=== PATIENT | female | born 1950 | race Two or more races ===

== ENCOUNTER 2016-09-14 14:24 | Observation (INO) | payer MEDICARE, OTHER ==
[~2016-09-14 14:24] MED LIST: B PLEX; BACITRACIN28.4 G1; BIAXIN500 M1 PO; CLARITIN10 M5 PO; CLINORIL200 MG PO; DARVOCET-N 1001 TAB PO; DIFLUCAN100 MG PO; DULCOLAX10 MG/SUPP RC; DULCOLAX5 MG PO; ESTROPIPATE; ESTROPIPATE0.75 MG PO; FLUCONAZOLE100 M1 PO; FOLIC ACID1 MG PO; H PO; LATANOPROST2.5 ML BOTH EYES; LEVOTHYROXINE75 MCG PO; LOPRESSOR50 MG PO; MACROBID 100 M100 MG PO; METHADONE5 MG PO; METHOTREXATE2.5 MG PO; METOPROLOL SUC100 MG PO; MILK OF MAGNESIA PO; OMEPRAZOLE20 M2 PO; PREDNISONE5 MG PO; PREMARIN0.625 MG; REMICADE100 MG/VIA IV; RITUXAN; SENOKOT-S (SENN1 TA1 PO; TUMS500 MG PO; TYLENOL325 M1 PO; ULTRAM50 MG PO; VITAMIN D-50000 IU/C PO; VOLTAREN GEL 1100 G1 TOP
[2016-09-14] MEDS ORDERED: ZOFRAN4 M2 PO (15:39)
[2016-09-14] MEDS ORDERED: LOPERAMIDE2 M2 PO (15:39)
[2016-09-14] MEDS ORDERED: CIPRO500 M2 PO (15:40)
[2016-09-14] MEDS ORDERED: PREDNISONE5 M1 PO (15:40)
[2016-09-14] MEDS ORDERED: ASPIRIN EC81 MG PO (15:40)
[2016-09-14] MEDS ORDERED: CELEXA10 M1 PO (15:40)
[2016-09-14] MEDS ORDERED: METHOTREXATE2.5 M1 PO (15:41)
[2016-09-14] MEDS ORDERED: SYNTHROID88 MC1 PO (15:42)
[2016-09-14] MEDS ORDERED: FOLIC ACID1 M1 PO (15:42)
[2016-09-14] MEDS ORDERED: TYLENOL325 M2 PO (15:43)
[2016-09-14] MEDS ORDERED: COZAAR50 M1 PO (15:43)
[2016-09-14] MEDS ORDERED: VITAMIN D31000 UNI3 PO (15:43)
[2016-09-14] MEDS ORDERED: CLARITIN10 M6 PO (15:44)
[2016-09-14] MEDS ORDERED: SENOKOT-S TABL1 EACH PO (15:44)
[2016-09-14] MEDS ORDERED: NEURONTIN100 M1 PO (15:45)
[2016-09-14 18:03] LABS: BASO % 0.3 % (0-2); EOS % 1.3 % (0-7); EOSINOPHIL ABSOLUTE COUNT 0.2 tho/cmm (0.0-0.7); HCT-HEMATOCRIT 38.6 % (34.0-49.0); HGB-HEMOGLOBIN 12.4 gm/dl (12.0-15.5); IMMATURE GRANULOCYTES ABSOLUTE 0.11 tho/cmm (0-0.03); LYMPH % 16.4 % (20-45); LYMPH ABSOLUTE COUNT 1.9 tho/cmm (0.8-4.5); MCH (MEAN CORPUSCULAR HGB) 28.8 pg (28.0-32.0); MCHC MEAN CORPUSCULAR HGB CONC 32.1 % (32.0-36.0); MCV (MEAN CELL VOLUME) 89.6 fl (82.0-96.0); MEAN PLATELET VOLUME 9.8 cmc (9.4-12.4); MONO % 8.4 % (0-12); NEUTROPHIL ABSOLUTE COUNT 8.2 tho/cmm (1.6-8.0); NEUTROPHIL-AUTOMATED 8.2 tho/cmm (1.6-8.0); NEUTROPHILS % 72.6 % (40-80); PLATELET COUNT 265 tho/cmm (150-450); RED BLOOD COUNT 4.31 mil/cmm (4.00-5.20); RED CELL DISTRIBUTION WIDTH 15.6 % (12.4-16.4); WHITE BLOOD COUNT 11.3 tho/cmm (4.0-10.0)
[2016-09-14] MEDS ORDERED: FLAGYL500 M1 PO (18:06)
[2016-09-14 18:13] LABS: ANION GAP 17 mmol/L (0-20); BLOOD UREA NITROGEN 9 mg/dl (6-24); CARBON DIOXIDE-VENOUS 24 mmol/L (22-32); CHLORIDE 108 mmol/l (96-110); CREATININE 0.86 mg/dl (0.50-1.10); GLUCOSE 89 mg/dL (70-110); POTASSIUM 3.5 mmol/L (3.7-5.1); SODIUM 145 mmol/L (135-145); eGFR VALUE FOR BLACK 81 mL/Min
[2016-09-14 22:01] LABS: URINE BILIRUBIN SMALL (NEG); URINE BLOOD MODERATE (NEG); URINE GLUCOSE (UA) NEGATIVE (NEG); URINE KETONE LARGE (NEG); URINE LEUKOCYTE ESTERASE POSITIVE (NEG); URINE NITRITE POSITIVE (NEG); URINE PROTEIN MODERATE (NEG)
[2016-09-14 22:09] LABS: URINE APPEARANCE CLOUDY; URINE COLOR BROWN
[2016-09-14 22:10] LABS: URINE WBC 80-100 /[HPF] (0-5)
[2016-09-14 22:11] LABS: URINE BACTERIA 3+; URINE EPITHELIAL CELLS RARE /[HPF] (0-10)
[2016-09-15 05:00] LABS: ANION GAP 13 mmol/L (0-20); BLOOD UREA NITROGEN 5 mg/dl (6-24); CALCIUM 7.2 mg/dl (8.5-10.5); CARBON DIOXIDE-VENOUS 24 mmol/L (22-32); CHLORIDE 108 mmol/l (96-110); CREATININE 0.75 mg/dl (0.50-1.10); GLUCOSE 93 mg/dL (70-110); POTASSIUM 3.2 mmol/L (3.7-5.1); SODIUM 142 mmol/L (135-145); eGFR VALUE FOR BLACK >90 mL/Min
[2016-09-15 05:09] LABS: BASO % 0.2 % (0-2); EOS % 1.6 % (0-7); EOSINOPHIL ABSOLUTE COUNT 0.2 tho/cmm (0.0-0.7); HCT-HEMATOCRIT 34.5 % (34.0-49.0); HGB-HEMOGLOBIN 11.2 gm/dl (12.0-15.5); LYMPH % 21.4 % (20-45); LYMPH ABSOLUTE COUNT 2.2 tho/cmm (0.8-4.5); MCHC MEAN CORPUSCULAR HGB CONC 32.5 % (32.0-36.0); MCV (MEAN CELL VOLUME) 89.4 fl (82.0-96.0); MEAN PLATELET VOLUME 9.8 cmc (9.4-12.4); MONO % 10.5 % (0-12); MONOCYTE ABSOLUTE COUNT 1.1 tho/cmm (0.0-1.2); NEUTROPHIL ABSOLUTE COUNT 6.7 tho/cmm (1.6-8.0); NEUTROPHIL-AUTOMATED 6.7 tho/cmm (1.6-8.0); NEUTROPHILS % 65.3 % (40-80); PLATELET COUNT 258 tho/cmm (150-450); RED BLOOD COUNT 3.86 mil/cmm (4.00-5.20); RED CELL DISTRIBUTION WIDTH 15.7 % (12.4-16.4); WHITE BLOOD COUNT 10.3 tho/cmm (4.0-10.0)
--- NOTE | 2016-09-15 15:32 | NUR ---
VIRTUAL CARE NOTE: PT RESTING ON BED, STATES DOING OK, STILL HAVING DIARRHEA, INFOMRED PT STOOL STEST FOR C-DIFF AND STOOL PANNEL ARE NEGATIVE. PLAN OF CARE REVIEWED WITH PT, PT DENIES NEEDS OR QUESTIONS AT THIS TIME.
--- NOTE | 2016-09-15 20:10 | NUR ---
VIRTUAL CARE NOTE: PT. IN BED, STATES IS HAVING LOOSE STOOLS AT TIMES AND ALSO MENTIONS THAT SHE HAD WALKED ONE TIME TODAY. ENCOURAGED MORE AMBULATION. INSTRUCTED TO CALL FOR FURTHER NEEDS. HER PHONE RINGS AND SHE WAVES IF SHE HEARD THIS NURSE. WILL CONTINUE TO MONITOR.
[2016-09-16 05:01] LABS: BASO % 0.1 % (0-2); EOS % 1.8 % (0-7); EOSINOPHIL ABSOLUTE COUNT 0.2 tho/cmm (0.0-0.7); HCT-HEMATOCRIT 32.1 % (34.0-49.0); HGB-HEMOGLOBIN 10.4 gm/dl (12.0-15.5); IMMATURE GRANULOCYTES ABSOLUTE 0.09 tho/cmm (0-0.03); IMMATURE GRANULOCYTES PERCENT 0.9 % (0-0.3); LYMPH % 22.6 % (20-45); LYMPH ABSOLUTE COUNT 2.3 tho/cmm (0.8-4.5); MCH (MEAN CORPUSCULAR HGB) 28.8 pg (28.0-32.0); MCHC MEAN CORPUSCULAR HGB CONC 32.4 % (32.0-36.0); MCV (MEAN CELL VOLUME) 88.9 fl (82.0-96.0); MEAN PLATELET VOLUME 9.7 cmc (9.4-12.4); MONO % 7.9 % (0-12); MONOCYTE ABSOLUTE COUNT 0.8 tho/cmm (0.0-1.2); NEUTROPHIL ABSOLUTE COUNT 6.7 tho/cmm (1.6-8.0); NEUTROPHIL-AUTOMATED 6.7 tho/cmm (1.6-8.0); NEUTROPHILS % 66.7 % (40-80); PLATELET COUNT 254 tho/cmm (150-450); RED BLOOD COUNT 3.61 mil/cmm (4.00-5.20); RED CELL DISTRIBUTION WIDTH 16.1 % (12.4-16.4)
[2016-09-16 05:03] LABS: ANION GAP 11 mmol/L (0-20); BLOOD UREA NITROGEN 4 mg/dl (6-24); CARBON DIOXIDE-VENOUS 24 mmol/L (22-32); CHLORIDE 116 mmol/l (96-110); CREATININE 0.59 mg/dl (0.50-1.10); GLUCOSE 93 mg/dL (70-110); POTASSIUM 3.4 mmol/L (3.7-5.1); SODIUM 148 mmol/L (135-145); eGFR VALUE FOR BLACK >90 mL/Min
[2016-09-16] MEDS ORDERED: NORCO 5-325 TA1 EACH PO (10:50)
[2016-09-16] MEDS ORDERED: PROTONIX40 M2 PO (10:50)
[2016-09-16] MEDS ORDERED: STOP THE FOLLOWING (10:53)
== END 2016-09-16 12:30 ==
LOC: 5WD 14:24
PROVIDERS: Family Medicine; ADMIT Internal Medicine
DX: R19.7 Diarrhea, unspecified (principal); N39.0 Urinary tract infection, site not specified; R50.9 Fever, unspecified; R10.9 Unspecified abdominal pain; M06.9 Rheumatoid arthritis, unspecified; E03.9 Hypothyroidism, unspecified; I10 Essential (primary) hypertension; G43.909 Migraine, unspecified, not intractable, without status migrainosus; Z86.718 Personal history of other venous thrombosis and embolism; Z79.899 Other long term (current) drug therapy; Z88.0 Allergy status to penicillin; Z90.49 Acquired absence of other specified parts of digestive tract; Z90.710 Acquired absence of both cervix and uterus; Z90.722 Acquired absence of ovaries, bilateral; Z98.51 Tubal ligation status
CPT/HCPCS: G0378; G0379; G8978-GP-CJ; G8979-GP-CI; G8980-GP-CI; G8987-GO-CJ; G8988-GO-CI; G8989-GO-CJ; J0744; J2405; J7030; J7512; J8610